=== PATIENT | female | born 1975 ===

== ENCOUNTER 2017-05-21 16:18 | Emergency (ER) | payer BC ==
[2017-05-21] MEDS ORDERED: Ibuprofen TAB* 200 MG PO ONE (19:36)
--- NOTE | 2017-05-21 19:38 | UC ---
Knee Pain HPI - HPI Summary HPI Summary: PT FELL WHILE SKIING AND INJURED HER l KNEE TODAY AROUND 11:30AM. HERE FOR ONGOING PAIN AND SWELLING. 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 Negative: Weakness, Numbness , Tingling Able to Bear Weight: Yes - Risk Factors Septic Arthritis Risk Factor: Negative - Allergies/Home Medications Allergies/Adverse Reactions: Allergies Allergy/AdvReac Type Severity Reaction Status Date / Time No Known Allergies Allergy Verified 05/21/17 19:31 Home Medications: Home Medications FLUoxetine CAP* [Prozac CAP*] 1 tab DAILY 05/21/17 [History Confirmed 05/21/17] Ibuprofen TAB* [Motrin TAB* 400 MG] 400 mg PO ONCE 05/21/17 [History Confirmed 05/21/17] buPROPion HCl [Bupropion HCl Xl] 150 mg PO DAILY 05/21/17 [History Confirmed ] PMH/Surg Hx/FS Hx/Imm Hx Psychological History: Anxiety, Depression - Surgical History Surgical History: Yes Surgery Procedure, Year, and Place: diastasis repair. uterine ablation - Family History Known Family History: Positive: None - Social History Lives: With Family Alcohol Use: Rare Substance Use Type: None Smoking Status (MU): Never Smoked Tobacco - Immunization History Vaccination Up to Date: Yes Review of Systems Constitutional: Negative Skin: Negative Eyes: Negative ENT: Negative Respiratory: Negative Cardiovascular: Negative Gastrointestinal: Negative Genitourinary: Negative Motor: Negative Neurovascular: Negative Musculoskeletal: Other: - PAIN/SWELLING L KNEE Neurological: Negative Psychological: Negative Is Patient Immunocompromised?: No All Other Systems Reviewed And Are Negative: Yes Physical Exam Triage Information Reviewed: Yes Appearance: Well-Appearing Vital Signs: Initial Vital Signs Temp 98.9 F 05/21/17 19:25 Pulse 103 05/21/17 19:25 Resp 15 05/21/17 19:25 BP 116/56 05/21/17 19:25 Pulse Ox 100 05/21/17 19:25 Vital Signs Reviewed: Yes Eyes: Positive: Conjunctiva Clear ENT: Positive: Normal ENT inspection Neck: Positive: Supple, Nontender, No Lymphadenopathy Respiratory: Positive: Lungs clear, Normal breath sounds Cardiovascular: Positive: RRR, No Murmur Abdomen Description: Positive: Nontender, No Organomegaly, Soft Bowel Sounds: Positive: Present Musculoskeletal: Positive: Other: - LEFT KNEE BARE FOR EXAM AND MILDLY SWOLLEN COMPARED TO R. TENDER TO LCL AND POSTERIOR KNEE ON LATERAL SIDE. PATELLA NOT BALLOTABLE. POST XRAY=NO GROSS LAXITY. ACTIVE ROM INTACT. Neurological: Positive: Alert Psychological: Positive: Age Appropriate Behavior Skin Exam: Normal Diagnostics - Laboratory Diagnostic Studies Completed/Ordered: xray=nad Knee Pain Course/Dx - Course Course Of Treatment: xray=no fx/dislocation and no sign of infection. post xray , no gross laxity thus no knee immobilizer. will tricia, otc nsaid and orhto f/u - Differential Dx/Diagnosis Provider Diagnoses: Sprain L knee Discharge - Discharge Plan Condition: Stable Disposition: HOME Patient Education Materials: Knee Sprain (ED) Additional Instructions: USE THE TRICIA DURING DAY AND CRUTCHES UNTIL CLEARED BY ORTHOPEDICS. FOLLOW UP WITH ORTHOPEDICS IN [place] UPON RETURN HOME THIS WEDNESDAY.
--- NOTE | 2017-05-21 20:27 | RAD ---
INDICATION: Left knee pain COMPARISON: None TECHNIQUE: AP, lateral, tunnel, and sunrise views were obtained. FINDINGS: The bony structures, joint spaces, and soft tissues are normal for age. IMPRESSION: NEGATIVE EXAMINATION.
== END 2017-05-21 21:05 | disposition home or self-care (01) ==
LOC: UCCORT 16:18
DX: S83.92XA Sprain of unspecified site of left knee, initial encounter (principal); W00.0XXA Fall on same level due to ice and snow, initial encounter; Y93.23 Activity, snow (alpine) (downhill) skiing, snowboarding, sledding, tobogganing and snow tubing; Y92.9 Unspecified place or not applicable; F41.8 Other specified anxiety disorders
CPT/HCPCS: 99203; A9270-GY; G0463